=== PATIENT | female | born 1960 | race Caucasian/White ===

== ENCOUNTER 2017-10-14 18:12 | Emergency (ER) | END 2017-10-14 22:40 | disposition home or self-care (01) ==

== ENCOUNTER 2017-12-30 19:15 | Emergency (ER) | END 2017-12-31 02:45 | disposition home or self-care (01) ==

== ENCOUNTER 2018-03-05 16:35 | Emergency (ER) | END 2018-03-05 18:16 | disposition home or self-care (01) ==

== ENCOUNTER 2018-07-16 16:39 | Emergency (ER) | payer OTHER ==
[~2018-07-16] VITALS: Wt 92.3 kg
[~2018-07-16 16:39] MED LIST: ACET500C5 PO; ALBU8.5H8 INH; BACTDS PO; CEPH-443 PO; CODE118S PO; DIPH50CA17 PO; FAMO-96 PO; HYDR-3498 PO; HYDR25TA6 PO; IBUP-1542 PO; IBUP-1544 PO; METH-417 PO; NAPR-985 PO; OMEP20CA16 PO; SIMV40TA3 PO; TRAM50TA2 PO; [UNRECOGNIZED DRUG - REMARK]
[2018-07-16] MEDS ORDERED: IPRATROPIUM (NEB) 0.5 MG/2.5 ML AMP INH STA (18:50)
[2018-07-16] MEDS ORDERED: ALBUTEROL 0.5% (NEB) 2.5 MG/0.5 ML AMP INH STA (18:50)
[2018-07-16] MEDS ORDERED: METHYLPREDNISOLONE 125 MG INJ IV STA (18:50)
[2018-07-16] MEDS ORDERED: SOD CHLORIDE 0.9% 1,000 ML IV ONE (19:00)
[2018-07-16] MEDS ORDERED: ALBU18HF INHALATION (21:16)
[2018-07-16] MEDS ORDERED: PRED20TA PO (21:16)
[2018-07-16] MEDS ORDERED: BENZ-6 PO (21:16)
[2018-07-16] MEDS ORDERED: AZIT250T PO (21:16)
[2018-07-16 21:32] VITALS: BP 130/71; PULSE 72; RESP 16
--- NOTE | 2018-07-16 22:20 | ERD ---
ER Documentation Chief Complaint Chief Complaint COUGH HPI 58-year-old female patient with a past medical history of COPD, emphysema, hypertension presents the ED stating that she has had cough and wheezing. Patient denies any chest pain, SOB, nausea, vomiting, diarrhea, neck stiffness. Reports that she smokes 1 pack per day. ROS All systems reviewed and are negative except as per history of present illness. Medications Home Meds Active Scripts Azithromycin* (Zithromax*) 250 Mg Tablet, 250 MG PO .INDERCK DIRECTED, #6 TAB TAKE 500 MG (2 TABS) THE FIRST DAY THEN 250 MG (1 TAB) DAYS 2-5 Prov:JEN MORFIN PA-C 07/16/18 Albuterol Sulfate* (Ventolin HFA*) 18 Gm Hfa.aer.ad, 2 PUFF INHALATION Q4H, #1 INHALER Prov:JEN MORFIN PA-C 07/16/18 Benzonatate* (Tessalon Perle*) 100 Mg Capsule, 100 MG PO Q8H PRN for COUGH, #20 CAP Prov:JEN MORFIN PA-C 07/16/18 Prednisone* (Prednisone*) 20 Mg Tab, 40 MG PO DAILY for 4 Days, TAB Prov:JEN MORFIN PA-C 07/16/18 Tramadol HCl (Tramadol HCl) 50 Mg Tablet, 50 MG PO Q4 PRN for PAIN, #20 TAB Prov:TOMI RAMIREZ MD 03/05/18 Ibuprofen* (Motrin*) 600 Mg Tab, 600 MG PO Q6, #30 TAB Prov:TOMI RAMIREZ MD 03/05/18 Famotidine* (Pepcid*) 20 Mg Tablet, 20 MG PO BID for 10 Days, #20 TAB Prov:NEVILLE,MARGARITA 12/31/17 Naproxen* (Naprosyn*) 500 Mg Tablet, 500 MG PO BID PRN for PAIN AND/OR INFLAMMATION, #20 TAB Prov:NEVILLE,MARGARITA 12/31/17 Acetaminophen* (Tylophen*) 500 Mg Capsule, 1 CAP PO Q6H PRN for PAIN AND OR ELEVATED TEMP, #20 CAP Prov:KAYLEE WILLIS NP 10/14/17 Hydrocodone Bit-Acetaminophen* ([place]*) 5-325 Mg Tab, 1 TAB PO Q6 PRN for PAIN, #7 TAB Prov:JUANJO NOLENC 06/20/15 Ibuprofen* (Motrin*) 600 Mg Tab, 600 MG PO Q6, #30 TAB Prov:JUANJO NOLEN RUTHAmosC 06/20/15 Cephalexin* (Keflex*) 500 Mg Capsule, 500 MG PO QID for 7 Days, CAP Prov:JUANJO NOLEN RUTHAmosC 06/20/15 Albuterol Sulfate* (Proair HFA*) 8.5 Gm Hfa.aer.ad, 2 PUFF INH Q4, #1 INH Prov:TAMANNAJUANJO RUTHAmosRobina 02/28/15 Promethazine w/Codeine* (Phenergan w/Codeine* Syrup) 473 Ml Syrup, 10 ML PO Q6H PRN for COUGH, #4 OZ Prov:JUANJO NOLEN RUTHAmosC 02/28/15 Acetaminophen* (Tylophen*) 500 Mg Capsule, 500 MG PO Q6H PRN for PAIN, #30 TAB Prov:TAMANNA,JUANJO LILLIAN 02/28/15 Ibuprofen* (Ibuprofen*) 600 Mg Tablet, 600 MG PO Q6, #30 TAB Prov:JUANJO NOLEN RUTHAmosC 02/28/15 Ibuprofen* (Motrin*) 600 Mg Tab, 600 MG PO Q6, #20 TAB Prov:TOMI RAMIREZ MD 01/09/15 Hydrocodone Bit-Acetaminophen* ([place]*) 5-325 Mg Tab, 1 TAB PO Q6 PRN for PAIN, #14 TAB Prov:TOMI RAMIREZ MD 01/09/15 Sulfamethoxazole-Trimethoprim* (Bactrim* DS) 800-160 Mg Tab, 1 TAB PO BID for 7 Days, TAB Prov:TOMI RAMIREZ MD 01/09/15 Cephalexin* (Keflex*) 500 Mg Capsule, 500 MG PO QID for 7 Days, CAP Prov:TOMI RAMIREZ MD 01/09/15 Reported Medications Methadone Hcl* (Methadone*) 5 Mg Tab, 100 MG PO DAILY 12/05/12 Diphenhydramine Hcl (Night-Time) 50 Mg Capsule, 50 MG PO HS 10/18/12 Simvastatin (Simvastatin) 40 Mg Tablet, 40 MG PO HS, 0 Refills 08/15/12 Omeprazole* (Omeprazole*) 20 Mg Capsule.dr, 20 MG PO BEFORE MEALS, 0 Refills BEFORE BREAKFAST 08/15/12 Ibuprofen* (Ibuprofen*) 800 Mg Tablet, 800 MG PO BID PRN, 0 Refills 11/11/11 Hydrochlorothiazide (Hydrochlorothiazide) 25 Mg Tablet, 25 MG PO DAILY, 0 Refills 11/11/11 [Chol Med 1 Po Qhs] No Conflict Check 11/11/11 Allergies Allergies: Coded Allergies: No Known Drug Allergies (Verified Allergy, Unknown, 01/09/15) PMhx/Soc History of Surgery: Yes (CTS SURGERY,KIDNEY STONES REMOVAL,UTERINE TUMOR REMOVAL) Anesthesia Reaction: No Hx Neurological Disorder: No Hx Respiratory Disorders: No Hx Cardiac Disorders: Yes (HIGH CHOLESTEROL ) Hx Psychiatric Problems: No Hx Miscellaneous Medical Probl: Yes (SLEEP APNEA,BLEEDING ULCERS,HTN,EMPHYSEMA, OA to knee) Hx Alcohol Use: No Hx Substance Use: Yes Hx Tobacco Use: Yes Smoking Status: Current every day smoker FmHx Family History: No diabetes Physical Exam Vitals Vital Signs Date Temp Pulse Resp B/P (MAP) Pulse Ox O2 O2 Flow FiO2 Time Delivery Rate 07/16/18 98.3 72 16 130/71 93 Room Air 21:32 (90) 07/16/18 83 22 93 21 19:14 07/16/18 98.0 82 17 127/74 98 16:45 (91) Physical Exam Const: [id number], well-nourished. In no acute distress. Head: Atraumatic, normocephalic Eyes: Normal Conjunctiva without injection. No purulent discharge. PERRL. EOMI ENT: Normal external ear. Ear canal without erythema. Tympanic membrane pearly hodgson without effusion or bulging. Nasal canal clear with normal turbinates. Moist oropharynx without tonsillar exudates. Non-erythematous pharynx. Uvula midline. No drooling. No trismus. Neck: Full range of motion. No meningismus. No cervical lymphadenopathy. Resp: Clear to auscultation bilaterally. No wheezing, rhonchi, rales, or crackles. No accessory muscle use. No retractions. Cardio: Regular rate and rhythm. No murmurs, rubs or gallops. Abd: Soft, non tender, non distended. Normal bowel sounds. No palpable masses. No rebound tenderness. No guarding. Skin: No petechiae or rashes Back: No midline tenderness. No CVA tenderness. Ext: No cyanosis, or edema. Neur: Awake and alert. Psych: Normal Mood and Affect Results 24 hrs Laboratory Tests Test 07/16/18 19:06 White Blood Count 5.4 10^3/ul Red Blood Count 4.12 10^6/ul Hemoglobin 12.6 g/dl Hematocrit 38.8 % Mean Corpuscular Volume 94.2 fl Mean Corpuscular Hemoglobin 30.6 pg Mean Corpuscular Hemoglobin Concent 32.5 g/dl Red Cell Distribution Width 12.4 % Platelet Count 140 10^3/UL Mean Platelet Volume 10.8 fl Immature Granulocytes % 0.400 % Neutrophils % 50.6 % Lymphocytes % 36.8 % Monocytes % 7.7 % Eosinophils % 3.9 % Basophils % 0.6 % Nucleated Red Blood Cells % 0.0 /100WBC Immature Granulocytes # 0.020 10^3/ul Neutrophils # 2.8 10^3/ul Lymphocytes # 2.0 10^3/ul Monocytes # 0.4 10^3/ul Eosinophils # 0.2 10^3/ul Basophils # 0.0 10^3/ul Nucleated Red Blood Cells # 0.0 10^3/ul Sodium Level 141 mmol/L Potassium Level 4.1 mmol/L Chloride Level 104 mmol/L Carbon Dioxide Level 28 mmol/L Anion Gap 9 Blood Urea Nitrogen 13 mg/dl Creatinine 0.70 mg/dl Est Glomerular Filtrat Rate mL/min > 60 mL/min Glucose Level 109 mg/dl Calcium Level 9.2 mg/dl Total Bilirubin 0.2 mg/dl Direct Bilirubin 0.00 mg/dl Indirect Bilirubin 0.2 mg/dl Aspartate Amino Transf (AST/SGOT) 31 IU/L Alanine Aminotransferase (ALT/SGPT) 28 IU/L Alkaline Phosphatase 88 IU/L Total Protein 7.4 g/dl Albumin 4.1 g/dl Globulin 3.30 g/dl Albumin/Globulin Ratio 1.24 Current Medications Medications Dose Sig/Vanita Start Time Status Last (Trade) Ordered Route PRN Stop Time Admin Dose Reason Admin Albuterol 10 mg ONCE STAT 07/16/18 DC 07/16/18 (Proventil INH 18:50 19:13 0.5% (Neb)) 07/16/18 18:55 Ipratropium 1 mg ONCE STAT 07/16/18 DC 07/16/18 [place] INH 18:50 19:13 (Atrovent 07/16/18 18:55 0.02% (Neb)) 125 mg ONCE STAT 07/16/18 DC 07/16/18 Methylprednis IV 18:50 19:04 olone Sodium 07/16/18 18:55 Succinate (Solu-Medrol) Sodium 1,000 ml @ Q1H ONCE 07/16/18 DC 07/16/18 Chloride 1,000 mls/hr IV 19:00 19:04 07/16/18 19:59 Procedures/MDM 58-year-old female patient with past medical history of COPD, emphysema, hypertension presents to ED complaining of a cough that started about 4 days ago. Patient is afebrile and nontoxic-appearing. A breathing treatment consisting of albuterol, Atrovent 125 mg IV Solumedrol was ordered to further treat patient with improvement. Patient is speaking in full sentences and states that she feels better. Smoking cessation education given to patient for about 3 minutes. IMPRESSION: 1. Unremarkable single view chest. Patient likely has COPD exacerbation. Low suspicion for atypical ID, pneumonia, pulmonary embolism, pneumothorax, cardiac tamponade, sinusitis, peritonsillar abscess, mastoiditis, Donavan's angina, retropharyngeal abscess, meningitis, sepsis or other emergent co nditions. Diagnosis: Cough, Wheezing Discharge medications: Ventolin, Zithromax, Tessalon Perles, Prednisone Follow up with primary care physician in 1-2 days. Instructed patient to return to the ED sooner for any worsening symptoms. Patient's questions were answered. Patient is hemodynamically stable. Patient understood and agreed with discharge plan. Patient discharged stable. Disclaimer: Inadvertent spelling and grammatical errors are likely due to EHR/dictation software use and do not reflect on the overall quality of patient care. Also, please note that the electronic time recorded on this note does not necessarily reflect the actual time of the patient encounter. Departure Diagnosis: Primary Impression: Cough Additional Impression: Wheezing Condition: Stable Patient Instructions: COPD: Using Inhalers, Copd Flare Referrals: COMMUNITY CLINICS YOU HAVE RECEIVED A MEDICAL SCREENING EXAM AND THE RESULTS INDICATE THAT YOU DO NOT HAVE A CONDITION THAT REQUIRES URGENT TREATMENT IN THE EMERGENCY DEPARTMENT. FURTHER EVALUATION AND TREATMENT OF YOUR CONDITION CAN WAIT UNTIL YOU ARE SEEN IN YOUR DOCTORS OFFICE WITHIN THE NEXT 1-2 DAYS. IT IS YOUR RESPONSIBILITY TO MAKE AN APPOINTMENT FOR FOLOW-UP CARE. IF YOU HAVE A PRIMARY DOCTOR --you should call your primary doctor and schedule an appointment IF YOU DO NOT HAVE A PRIMARY DOCTOR YOU CAN CALL OUR PHYSICIAN REFERRAL HOTLINE AT IF YOU CAN NOT AFFORD TO SEE A PHYSICIAN YOU CAN CHOSE FROM THE FOLLOWING [facility] [address] [facility] [address] [facility] [facility] [address] [facility] [address] [facility] [address] [facility]. [facility] [address] [facility]. [facility] YOU HAVE RECEIVED A MEDICAL SCREENING EXAM AND THE RESULTS INDICATE THAT YOU DO NOT HAVE A CONDITION THAT REQUIRES URGENT TREATMENT IN THE EMERGENCY DEPARTMENT. FURTHER EVALUATION AND TREATMENT OF YOUR CONDITION CAN WAIT UNTIL YOU ARE SEEN IN YOUR DOCTORS OFFICE WITHIN THE NEXT 1-2 DAYS. IT IS YOUR RESPONSIBILITY TO MAKE AN APPOINTMENT FOR FOLOW-UP CARE. IF YOU HAVE A PRIMARY DOCTOR --you should call your primary doctor and schedule and appointment IF YOU DO NOT HAVE A PRIMARY DOCTOR YOU CAN CALL OUR PHYSICIAN REFERRAL HOTLINE AT . IF YOU CAN NOT AFFORD TO SEE A PHYSICIAN YOU CAN CHOSE FROM THE FOLLOWING [facility]: [facility] [address] [place] [address] [facility] [address] [place] [address] [facility] [address] [place] [address] [facility] Additional Instructions: Call your primary care doctor TOMORROW for an appointment during the next 2-3 days.See the doctor sooner or return here if your condition worsens before your appointment time. JEN MORFIN PA-C Jul 16, 2018 22:20
== END 2018-07-16 21:38 | disposition home or self-care (01) ==
LOC: FTE 16:39
DX: R05 Cough (principal); I10 Essential (primary) hypertension; F17.210 Nicotine dependence, cigarettes, uncomplicated; J44.1 Chronic obstructive pulmonary disease with (acute) exacerbation
CPT/HCPCS: 71045; 80053; 85025; 94644; 96374; J2930; J7030; Z7502; Z7610

== ENCOUNTER 2018-12-07 07:58 | Emergency (ER) | payer SELFPAY ==
[~2018-12-07] VITALS: Ht 160 cm; Wt 88.4 kg
[~2018-12-07 07:58] MED LIST changes: +ALBU18HF INHALATION; +AZIT250T PO; +BENZ-6 PO; +PRED20TA PO
[2018-12-07 08:05] VITALS: BP 198/94; PULSE 71; RESP 18; Ht 160 cm; Wt 88.4 kg
[2018-12-07] MEDS ORDERED: ONDANSETRON (ODT) 4 MG TAB ODT STA (08:28)
[2018-12-07] MEDS ORDERED: HYDROCODONE/APAP (5/325) TAB PO ONE (08:30)
--- NOTE | 2018-12-07 10:24 | ERD ---
ER Documentation Chief Complaint Chief Complaint right knee and bilateral leg pain x 1 month, left heel pain this morning HPI 58-year-old female presenting with right knee pain and lateral leg pain x1 month. She states that she has had pain to her heels with some mild swelling. Denies any traumatic injuries. She is been told she has arthritis. Denies any numbness or tingling. She has not taken medications for her symptoms. Medical history is hypertension. NKDA. Surgical history of partial hysterectomy and carpal tunnel release. Social history denies ROS All systems reviewed and are negative except as per history of present illness. Medications Home Meds Active Scripts Naproxen* (Naprosyn*) 500 Mg Tablet, 500 MG PO BID PRN for PAIN AND/OR INFLAMMATION, #30 TAB Prov:ZOË TIPTON PA-C 12/07/18 Azithromycin* (Zithromax*) 250 Mg Tablet, 250 MG PO .ZPACK DIRECTED, #6 TAB TAKE 500 MG (2 TABS) THE FIRST DAY THEN 250 MG (1 TAB) DAYS 2-5 Prov:JEN MORFIN PA-C 07/16/18 Albuterol Sulfate* (Ventolin HFA*) 18 Gm Hfa.aer.ad, 2 PUFF INHALATION Q4H, #1 INHALER Prov:JEN MORFIN PA-C 07/16/18 Benzonatate* (Tessalon Perle*) 100 Mg Capsule, 100 MG PO Q8H PRN for COUGH, #20 CAP Prov:JEN MORFIN PA-C 07/16/18 Prednisone* (Prednisone*) 20 Mg Tab, 40 MG PO DAILY for 4 Days, TAB Prov:JEN MORFIN PA-C 07/16/18 Tramadol HCl (Tramadol HCl) 50 Mg Tablet, 50 MG PO Q4 PRN for PAIN, #20 TAB Prov:TOMI RAMIREZ MD 03/05/18 Ibuprofen* (Motrin*) 600 Mg Tab, 600 MG PO Q6, #30 TAB Prov:TOMI RAMIREZ MD 03/05/18 Famotidine* (Pepcid*) 20 Mg Tablet, 20 MG PO BID for 10 Days, #20 TAB Prov:MARGARITA LOZADA 12/31/17 Naproxen* (Naprosyn*) 500 Mg Tablet, 500 MG PO BID PRN for PAIN AND/OR INFLAMMATION, #20 TAB Prov:MARGARITA LOZADA 12/31/17 Acetaminophen* (Tylophen*) 500 Mg Capsule, 1 CAP PO Q6H PRN for PAIN AND OR ELEVATED TEMP, #20 CAP Prov:KAYLEE WILLIS WILMER 10/14/17 Hydrocodone Bit-Acetaminophen* ([place]*) 5-325 Mg Tab, 1 TAB PO Q6 PRN for PAIN, #7 TAB Prov:JUANJO NOLENC 06/20/15 Ibuprofen* (Motrin*) 600 Mg Tab, 600 MG PO Q6, #30 TAB Prov:JUANJO NOLENC 06/20/15 Cephalexin* (Keflex*) 500 Mg Capsule, 500 MG PO QID for 7 Days, CAP Prov:JUANJO NOLENC 06/20/15 Albuterol Sulfate* (Proair HFA*) 8.5 Gm Hfa.aer.ad, 2 PUFF INH Q4, #1 INH Prov:JUANJO NOLENC 02/28/15 Promethazine w/Codeine* (Phenergan w/Codeine* Syrup) 473 Ml Syrup, 10 ML PO Q6H PRN for COUGH, #4 OZ Prov:JUANJO NOLENC 02/28/15 Acetaminophen* (Tylophen*) 500 Mg Capsule, 500 MG PO Q6H PRN for PAIN, #30 TAB Prov:JUANJO NOLENC 02/28/15 Ibuprofen* (Ibuprofen*) 600 Mg Tablet, 600 MG PO Q6, #30 TAB Prov:JUANJO NOLENC 02/28/15 Ibuprofen* (Motrin*) 600 Mg Tab, 600 MG PO Q6, #20 TAB Prov:TOMI RAMIREZ MD 01/09/15 Hydrocodone Bit-Acetaminophen* ([place]*) 5-325 Mg Tab, 1 TAB PO Q6 PRN for PAIN, #14 TAB Prov:TOMI RAMIREZ MD 01/09/15 Sulfamethoxazole-Trimethoprim* (Bactrim* DS) 800-160 Mg Tab, 1 TAB PO BID for 7 Days, TAB Prov:TOMI RAMIREZ MD 01/09/15 Cephalexin* (Keflex*) 500 Mg Capsule, 500 MG PO QID for 7 Days, CAP Prov:TOMI RAMIREZ MD 01/09/15 Reported Medications Methadone Hcl* (Methadone*) 5 Mg Tab, 100 MG PO DAILY 12/05/12 Diphenhydramine Hcl (Night-Time) 50 Mg Capsule, 50 MG PO HS 10/18/12 Simvastatin (Simvastatin) 40 Mg Tablet, 40 MG PO HS, 0 Refills 08/15/12 Omeprazole* (Omeprazole*) 20 Mg Capsule.dr, 20 MG PO BEFORE MEALS, 0 Refills BEFORE BREAKFAST 08/15/12 Ibuprofen* (Ibuprofen*) 800 Mg Tablet, 800 MG PO BID PRN, 0 Refills 11/11/11 Hydrochlorothiazide (Hydrochlorothiazide) 25 Mg Tablet, 25 MG PO DAILY, 0 Refills 11/11/11 [Chol Med 1 Po Qhs] No Conflict Check 11/11/11 Allergies Allergies: Coded Allergies: No Known Drug Allergies (Verified Allergy, Unknown, 01/09/15) PMhx/Soc History of Surgery: Yes (CTS SURGERY,KIDNEY STONES REMOVAL,UTERINE TUMOR R EMOVAL) Anesthesia Reaction: No Hx Neurological Disorder: No Hx Respiratory Disorders: Yes (EMPHYSEMA) Hx Cardiac Disorders: Yes (HIGH CHOLESTEROL ,HTN) Hx Psychiatric Problems: No Hx Miscellaneous Medical Probl: Yes (SLEEP APNEA,BLEEDING ULCERS,, OA to knee) Hx Alcohol Use: No Hx Substance Use: Yes Hx Tobacco Use: Yes Smoking Status: Current every day smoker FmHx Family History: No diabetes, No coronary disease, No other Physical Exam Vitals Vital Signs Date Temp Pulse Resp B/P (MAP) Pulse Ox O2 O2 Flow FiO2 Time Delivery Rate 12/07/18 98.2 71 18 198/94 94 08:05 (128) Physical Exam GENERAL: The patient is well-appearing, well-nourished, in no acute distress HEENT: Atraumatic. Conjunctivae are pink. Pupils equal, round, and reactive to light. There is no scleral icterus. Tympanic membranes clear bilaterally. Oropharynx clear. CHEST: Clear to auscultation bilaterally. There are no rales, wheezes or rhonchi. HEART: Regular rate and rhythm. No murmurs, clicks, rubs or gallops. BACK: No midline or flank tenderness. EXTREMITIES: Equal pulses bilaterally. There is no peripheral clubbing, cyanosis or edema. No focal swelling or erythema. Full range of motion. Swelling noted to the left inferior foot with no obvious erythema or warmth. NEUROLOGIC: Alert and oriented. Cranial nerves II through XII intact. Motor strength in all 4 extremities with 5 out of 5 strength. Sensation grossly intact. Normal speech and gait. SKIN: There is no apparent rash or petechiae. The skin is warm and dry. Results 24 hrs Current Medications Medications Dose Sig/Vanita Start Time Status Last (Trade) Ordered Route PRN Stop Time Admin Dose Reason Admin 1 tab ONCE ONCE 12/07/18 DC 12/07/18 Acetaminophen PO 08:30 12/07/18 08:36 / 08:31 Hydrocodone Bitart ([place] (5/325)) Ondansetron 4 mg ONCE STAT 12/07/18 DC 12/07/18 HCl (Zofran ODT 08:28 12/07/18 08:36 Odt) 08:29 Procedures/MDM DIAGNOSTIC IMAGING REPORT Patient: KELLI CAMARGO : 1960 Age: 58 Sex: F MR #: [id number] DOS: 12/07/18827 Ordering MD: DARA TIPTON PA-C Location: [facility] Room/Bed: PROCEDURE: Left foot series CLINICAL INDICATION: Pain TECHNIQUE: AP, lateral and oblique images were obtained of the left foot COMPARISON: None FINDINGS: Tiny calcaneal spurs. No evidence of acute fractures or dislocations. No focal bony blastic or lytic lesions. Mild degenerate joint disease of the tarsal and tarsometatarsal joints and first metatarsal phalangeal joint. No evidence of erosions. Soft tissues are otherwise unremarkable. IMPRESSION: Degenerate changes as above without acute fractures dislocations or erosions. DIAGNOSTIC IMAGING REPORT Patient: KELLI CAMARGO : 1960 Age: 58 Sex: F MR #: [id number] DOS: 12/07/18827 Ordering MD: DARA TIPTON PA-C Location: [facility] Room/Bed: PROCEDURE: Left os calcis series CLINICAL INDICATION: Pain TECHNIQUE: AP and lateral views of the left os calcis was obtained COMPARISON: Left foot series same day FINDINGS: Tiny calcaneal spurs. No evidence of acute fractures or dislocations. No focal bony blastic or lytic lesions or erosions. Soft tissues are unremarkable. IMPRESSION: Tiny calcaneal spurs without acute fractures dislocations or erosions. MDM: 58-year-old female presenting with knee pain. Patient also has foot pain. Patient's exams are within normal limits has findings consistent with arthritis. Patient is discharged with strict ER precautions and told to follow-up with primary care within 1 to 2 days for close evaluation. Patient is told if sympto ms change or worsen to return immediately to the ER. Patient is discharged with supportive medications. All questions answered at discharge Departure Diagnosis: Primary Impression: Heel spur Additional Impression: Arthritis Condition: Stable Patient Instructions: Heel Spur, Osteoarthritis Referrals: FREDDY COOK MD [facility] YOU HAVE RECEIVED A MEDICAL SCREENING EXAM AND THE RESULTS INDICATE THAT YOU DO NOT HAVE A CONDITION THAT REQUIRES URGENT TREATMENT IN THE EMERGENCY DEPARTMENT. FURTHER EVALUATION AND TREATMENT OF YOUR CONDITION CAN WAIT UNTIL YOU ARE SEEN IN YOUR DOCTORS OFFICE WITHIN THE NEXT 1-2 DAYS. IT IS YOUR RESPONSIBILITY TO MAKE AN APPOINTMENT FOR FOLOW-UP CARE. IF YOU HAVE A PRIMARY DOCTOR --you should call your primary doctor and schedule an appointment IF YOU DO NOT HAVE A PRIMARY DOCTOR YOU CAN CALL OUR PHYSICIAN REFERRAL HOTLINE AT IF YOU CAN NOT AFFORD TO SEE A PHYSICIAN YOU CAN CHOSE FROM THE FOLLOWING [facility] [address] [facility]. [facility] [address] [facility] [address] [facility] [address] [facility] [facility]. [facility] [address] [facility]. [facility]. [address] [facility] Hours: Mon-Fri 9:00 AM - 5:00 PM Additional Instructions: FOLLOW UP WITH YOUR PRIMARY CARE PHYSICIAN TOMORROW.Return to this facility if you are not improving as expected. ZOË TIPTON PA-C Dec 07, 2018 10:24
== END 2018-12-07 09:26 | disposition home or self-care (01) ==
LOC: FTE 07:58
DX: M77.32 Calcaneal spur, left foot (principal); M19.90 Unspecified osteoarthritis, unspecified site; I10 Essential (primary) hypertension; F17.210 Nicotine dependence, cigarettes, uncomplicated